=== PATIENT | male | born 1970 | race Caucasian/White ===

== ENCOUNTER → 2016-08-18 | Outpatient (CLI) | payer BC ==
--- NOTE | 2016-08-18 08:20 | DIAGNOSTIC IMAGING REPORT ---
ABDOMINAL ULTRASOUND, RIGHT UPPER QUADRANT HISTORY: Liver hemangioma. COMPARISON: Right upper quadrant ultrasound May 17, 2015 and liver MRI May 24, 2015. FINDINGS: Liver morphology is normal. A 7.3 x 5.1 x 7.9 cm subcapsular echogenic segment 6 hepatic lesion is similar to MRI of May 24, 2015 and previous ultrasound. This is consistent with a hemangioma. A 2.8 cm echogenic right hepatic lobe lesion is similar to prior MRI and represents an additional hemangioma. No additional hepatic lesions are identified. There is no biliary ductal dilatation. Numerous gallstones are noted within the gallbladder. There is no gallbladder wall thickening. The pancreas was obscured by overlying bowel gas. A 1.5 cm right renal cyst was incidentally noted. There is no right hydronephrosis. IMPRESSION: 1. No significant change in two right hepatic lobe hemangiomas since MRI of May 24, 2015. 2. Cholelithiasis. Electronically signed by: Johnny Martell M.D. 08/18/2016 8:19 AM Dictated Date/Time: 08/18/2016 8:16 AM
== END | disposition home or self-care (01) ==
LOC: C.ULTR 07:36
PROVIDERS: ATTEND Internal Medicine
DX: D18.03 Hemangioma of intra-abdominal structures (principal)